=== PATIENT | female | born 1960 | race African-American/Black ===

== ENCOUNTER 2017-10-28 13:57 | Emergency (ER) | payer MEDICARE, MEDICAID ==
[~2017-10-28] VITALS: Ht 154.9 cm; Wt 100.0 kg
[2017-10-28] MEDS ORDERED: IBUPROFEN 600MG TABLET PO ONE (18:15)
[2017-10-28 19:12] VITALS: BP 120/80
[2017-10-28] MEDS ORDERED: IBUPROFEN 800MG TABLET PO ONE (19:15)
== END 2017-10-28 19:24 | disposition home or self-care (01) ==
LOC: ER 14:33
DX: M25.552 Pain in left hip (principal); F20.9 Schizophrenia, unspecified; Z88.1 Allergy status to other antibiotic agents; Z88.8 Allergy status to other drugs, medicaments and biological substances; Z87.440 Personal history of urinary (tract) infections; Z87.09 Personal history of other diseases of the respiratory system
CPT/HCPCS: 73502; 99284

== ENCOUNTER 2018-11-09 14:33 | Emergency (ER) | payer MEDICARE, MEDICAID ==
[~2018-11-09] VITALS: Ht 154.9 cm; Wt 94.0 kg
[2018-11-09 19:32] VITALS: BP 163/89
== END 2018-11-09 19:33 | disposition home or self-care (01) ==
LOC: ER 14:33
DX: B34.9 Viral infection, unspecified (principal); N39.0 Urinary tract infection, site not specified; I10 Essential (primary) hypertension; F20.9 Schizophrenia, unspecified; Z90.89 Acquired absence of other organs; Z88.8 Allergy status to other drugs, medicaments and biological substances
CPT/HCPCS: 71045; 99283

== ENCOUNTER 2019-10-20 08:18 | Inpatient (IN) | payer MEDICARE, MEDICAID ==
[~2019-10-20] VITALS: Ht 165.1 cm; Wt 85.3 kg
[2019-10-20] MEDS ORDERED: SODIUM CHLORIDE 0.9% 1,000 ML IV ONE (08:50)
[2019-10-20] MEDS ORDERED: LORAZEPAM 2MG/ML CPJ IM STA (08:50)
[2019-10-20 09:10] LABS: BASOPHILS % 0.2 % (0.0-2.0); EOSINOPHILS % 0.1 % (0.0-5.0); HEMATOCRIT. 38.5 % (36.0-48.0); HEMOGLOBIN. 12.7 g/dL (12.0-16.0); LYMPHOCYTES % 23.7 % (20.0-50.0); MEAN CORPUSCULAR HEMOGLOBIN 29.6 pg (28.0-32.0); MEAN CORPUSCULAR VOLUME 89.5 fL (81.0-99.0); MEAN PLATELET VOLUME 8.8 fl (7.4-10.4); MONOCYTES % 7.3 % (2.0-8.0); NEUTROPHILS % 68.7 % (40.0-76.0); PLATELET 230 x1000/uL (130-400); RED CELL DISTRIBUTION WIDTH 14.6 % (11.6-14.6)
[2019-10-20 09:16] LABS: CHLORIDE 110 mEq/L (98-107)
[2019-10-20 09:19] LABS: ETHANOL BLOOD < 10 mg/dL
[2019-10-20] MEDS ORDERED: LORAZEPAM 2MG/ML CPJ IV ONE (10:30)
[2019-10-20 11:21] LABS: CLARITY URINE CLEAR (CLEAR); COLOR URINE DARK YELLOW (YELLOW); KETONES URINE 3+ (NEGATIVE); LEUKOCYTE ESTERASE URINE NEGATIVE (NEGATIVE); NITRITE URINE NEGATIVE (NEGATIVE); OCCULT BLOOD URINE NEGATIVE (NEGATIVE); PH URINE 5.5 (4.5-8.0); PROTEIN URINE 2+ (NEGATIVE); SPECIFIC GRAVITY URINE 1.035 (1.005-1.030)
[2019-10-20 11:52] LABS: *AMPHETAMINES SCREEN URINE NEGATIVE (NEGATIVE); *BENZODIAZEPINES SCREEN URINE NEGATIVE (NEGATIVE); *COCAINE SCREEN URINE NEGATIVE (NEGATIVE); METHADONE URINE SCREEN NEGATIVE (NEGATIVE); OPIATES URINE SCREEN NEGATIVE (NEGATIVE)
[2019-10-20 12:00] LABS: PHENCYCLIDINE URINE SCREEN NEGATIVE (NEGATIVE)
[2019-10-20 12:01] LABS: CANNABINOID URINE SCREEN NEGATIVE (NEGATIVE)
[2019-10-20 12:02] LABS: *BARBITURATES SCREEN URINE NEGATIVE (NEGATIVE)
[2019-10-20] MEDS ORDERED: ACETAMINOPHEN 325MG TABLET PO PRN (13:30)
[2019-10-20] MEDS ORDERED: ONDANSETRON HCL 4MG/2ML INJ IV PRN (13:30)
[2019-10-20] MEDS ORDERED: IPRATROPIUM/ALBUTEROL 0.5-3(2.5)MG/3ML NEB HHN PRN (13:30)
[2019-10-20] MEDS ORDERED: CLONIDINE 0.1MG TABLET PO PRN (13:30)
[2019-10-20 15:47] LABS: CREATINE KINASE MB FRACTION 24.4 ng/mL (0.5-3.6)
[2019-10-20] MEDS ORDERED: LORAZEPAM 2MG/ML CPJ IV PRN (16:30)
[2019-10-20] MEDS ORDERED: PHENYTOIN SODIUM 500 MG in SODIUM CHLORIDE 0.9% 50 ML IV ONE (16:37)
[2019-10-20] MEDS: ENOXAPARIN 40MG/0.4ML SYR SUBCUT SCH (16:51)
[2019-10-20] MEDS: SODIUM CHLORIDE 0.9% 1,000 ML IV SCH ×2 (17:58→22:58)
[2019-10-20] MEDS: PHENYTOIN SODIUM EXTENDED 100MG CAPSULE PO SCH ×2 (22:00→22:57)
[2019-10-20 22:05] VITALS: BP 154/78
[2019-10-20 22:10] VITALS: BP 154/77
[2019-10-21] MEDS: PHENYTOIN SODIUM EXTENDED 100MG CAPSULE PO SCH ×3 (06:00→22:00)
[2019-10-21] MEDS: ENOXAPARIN 40MG/0.4ML SYR SUBCUT SCH (09:00)
[2019-10-21] MEDS: SODIUM CHLORIDE 0.9% 1,000 ML IV SCH ×3 (09:28→17:23)
[2019-10-22] MEDS: SODIUM CHLORIDE 0.9% 1,000 ML IV SCH ×2 (00:03→20:03)
[2019-10-22] MEDS: PHENYTOIN SODIUM EXTENDED 100MG CAPSULE PO SCH ×3 (06:00→21:01)
[2019-10-22] MEDS: ENOXAPARIN 40MG/0.4ML SYR SUBCUT SCH (09:00)
[2019-10-22] MEDS ORDERED: LORAZEPAM 2MG/ML CPJ IM PRN (10:15)
[2019-10-23] MEDS: SODIUM CHLORIDE 0.9% 1,000 ML IV SCH ×2 (01:52→21:58)
[2019-10-23] MEDS: PHENYTOIN SODIUM EXTENDED 100MG CAPSULE PO SCH ×3 (05:52→21:05)
[2019-10-23] MEDS: ENOXAPARIN 40MG/0.4ML SYR SUBCUT SCH (09:00)
[2019-10-24] MEDS: SODIUM CHLORIDE 0.9% 1,000 ML IV SCH ×3 (04:39→18:41)
[2019-10-24] MEDS: PHENYTOIN SODIUM EXTENDED 100MG CAPSULE PO SCH ×3 (05:29→22:00)
[2019-10-24] MEDS: ENOXAPARIN 40MG/0.4ML SYR SUBCUT SCH (09:00)
[2019-10-25] MEDS: SODIUM CHLORIDE 0.9% 1,000 ML IV SCH ×4 (01:23→21:23)
[2019-10-25] MEDS: PHENYTOIN SODIUM EXTENDED 100MG CAPSULE PO SCH ×3 (06:00→21:46)
[2019-10-25] MEDS: ENOXAPARIN 40MG/0.4ML SYR SUBCUT SCH (09:00)
[2019-10-26] MEDS: SODIUM CHLORIDE 0.9% 1,000 ML IV SCH ×3 (04:03→17:09)
[2019-10-26] MEDS: PHENYTOIN SODIUM EXTENDED 100MG CAPSULE PO SCH ×3 (06:00→22:00)
[2019-10-26] MEDS: ENOXAPARIN 40MG/0.4ML SYR SUBCUT SCH (08:35)
[2019-10-27] MEDS: SODIUM CHLORIDE 0.9% 1,000 ML IV SCH ×2 (00:03→06:22)
[2019-10-27] MEDS: PHENYTOIN SODIUM EXTENDED 100MG CAPSULE PO SCH (06:00)
[2019-10-27 06:30] LABS: BASOPHILS % 0.5 % (0.0-2.0); EOSINOPHILS % 1.8 % (0.0-5.0); HEMATOCRIT. 36.9 % (36.0-48.0); HEMOGLOBIN. 12.2 g/dL (12.0-16.0); LYMPHOCYTES % 44.4 % (20.0-50.0); MEAN CORPUSCULAR HEMOGLOBIN 28.9 pg (28.0-32.0); MEAN PLATELET VOLUME 8.8 fl (7.4-10.4); MONOCYTES % 10.7 % (2.0-8.0); NEUTROPHILS % 42.6 % (40.0-76.0); PLATELET 259 x1000/uL (130-400); RED BLOOD CELL COUNT 4.24 mill/uL (4.2-5.4); RED CELL DISTRIBUTION WIDTH 14.3 % (11.6-14.6)
[2019-10-27 06:42] LABS: CHLORIDE 107 mEq/L (98-107)
[2019-10-27] MEDS: ENOXAPARIN 40MG/0.4ML SYR SUBCUT SCH (09:00)
== END 2019-10-27 16:10 | disposition home or self-care (01) | DRG 92 ==
LOC: ER 08:18 → 5WST 11:52 → EDBEDREQ 19:26 → ENRESERV 21:07
PROVIDERS: ADMIT Internal Medicine; ATTEND Internal Medicine
DX: G92 Toxic encephalopathy (principal); M62.82 Rhabdomyolysis; F23 Brief psychotic disorder; G40.909 Epilepsy, unspecified, not intractable, without status epilepticus; I10 Essential (primary) hypertension; F29 Unspecified psychosis not due to a substance or known physiological condition; K14.9 Disease of tongue, unspecified; Z78.1 Physical restraint status; Z91.83 Wandering in diseases classified elsewhere; Z88.8 Allergy status to other drugs, medicaments and biological substances
CPT/HCPCS: 36415; 71045; 80048; 80053; 80305; 80320; 81003; 82550; 82553; 82962; 83880; 84484; 85025; 93005; 93970; 96372; 99285; J1165; J1650; J2060; J7030; G0480